=== PATIENT | female | born 1995 | race African-American/Black ===

== ENCOUNTER 2016-12-30 13:26 | Emergency (ER) | payer OTHER ==
[2016-12-30 13:32] VITALS: BP 117/67; PULSE 60; TEMP 98.6; BMI 19.8
[2016-12-30] MEDS ORDERED: KETOROLAC TROMETHAMINE 60 MG/2 ML VIAL IM ONE (14:03)
[2016-12-30] MEDS ORDERED: KETOROLAC TROMETHAMINE 60 MG/2 ML VIAL ONE (14:06)
[2016-12-30] MEDS ORDERED: CYCLOBENZAPRINE HCL 10 MG TABLET (FP) PO ONE (14:18)
[2016-12-30] MEDS ORDERED: IBUPROFEN 600 MG TABLET (FP) PO ONE ×2 (14:18→14:21)
[2016-12-30] MEDS ORDERED: CYCLOBENZAPRINE HCL 10 MG TABLET (FP) ONE (14:21)
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
== END 2016-12-30 14:38 | disposition home or self-care (01) ==
LOC: JERFT 13:26
DX: S13.4XXA Sprain of ligaments of cervical spine, initial encounter (principal); V43.52XA Car driver injured in collision with other type car in traffic accident, initial encounter; Y92.410 Unspecified street and highway as the place of occurrence of the external cause; Y93.89 Activity, other specified
CPT/HCPCS: 99281-25

== ENCOUNTER 2017-05-16 19:31 | Emergency (ER) | payer OTHER ==
[2017-05-16 19:35] VITALS: BP 119/57; PULSE 86; TEMP 98.1; BMI 20.2
--- NOTE | 2017-05-16 19:57 | PDOC ---
History of Present Illness - General Chief Complaint: Urinary Problem Stated Complaint: PAIN Time Seen by Provider: 05/16/17 19:46 History Source: Patient - History of Present Illness Initial Comments: 05/16/17 20:15 Chief complaint: I have a UTI pt is a healthy 21 male who states she has 4 days of urinary frequency, and pressure. Patient's last period was just before . 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 No fever, vomiting, nausea or flank pain. GENERAL/CONSTITUTIONAL: No fever, weakness. dizziness HEAD, EYES, EARS, NOSE AND THROAT: No change in vision. No ear pain or discharge. No sore throat. CARDIOVASCULAR: No chest pain RESPIRATORY: No shortness of breath or cough GASTROINTESTINAL: No pain, nausea, vomiting, diarrhea or constipation GENITOURINARY: +dysuria MUSCULOSKELETAL: No neck or back pain SKIN: No rash NEUROLOGIC: No headache, vertigo, loss of consciousness, or loss of sensation. GENERAL: The patient is awake, alert, and fully oriented, in no acute distress. HEAD: Normal with no signs of trauma. EYES: Pupils equal, round and reactive to light, sclera anicteric, conjunctiva clear. ENT: pharynx: no erythema, no exudate, uvula midline NECK: supple CHEST: clear, nontender, rr ABD: soft, nontender EXTREMITIES: Normal range of motion, no edema. NEUROLOGICAL: Normal speech, normal gait. SKIN: Warm, Dry Past History - Past Medical History Allergies/Adverse Reactions: Allergies Allergy/AdvReac Type Severity Reaction Status Date / Time No Known Allergies Allergy Verified 05/16/17 19:35 Home Medications: Ambulatory Orders Cephalexin [Keflex] 1,000 mg PO BID #28 capsule 05/16/17 Asthma: No Cancer: No Cardiac Disorders: No COPD: No Diabetes: No HTN: No Seizures: No Thyroid Disease: No - Suicide/Smoking/Psychosocial Hx Smoking Status: Yes Smoking History: Former smoker Have you smoked in the past 12 months: Yes Number of Cigarettes Smoked Daily: 10 If you are a former smoker, when did you quit?: 10/13/12 Information on smoking cessation initiated: No Hx Alcohol Use: No Drug/Substance Use Hx: No Hx Substance Use Treatment: No *Physical Exam - Vital Signs Last Vital Signs Temp Pulse Resp BP Pulse Ox 98.1 F 86 18 119/57 99 05/16/17 19:32 05/16/17 19:32 05/16/17 19:32 05/16/17 19:32 05/16/17 19:32 Medical Decision Making - Medical Decision Making 05/16/17 20:17 Patient with 4 days of urinary frequency and pressure, been using Azo but not getting better. Patient just got checked for STDs by her anhydrous ammonia production supervisor and had her IUD removed. Does not want a pelvic exam. We will send STDs in the urine just to be complete patient appears well *DC/Admit/Observation/Transfer Diagnosis at time of Disposition: Urinary tract infection Qualifiers: Urinary tract infection type: site unspecified Hematuria presence: with hematuria Qualified Code(s): N39.0 - Urinary tract infection, site not specified ; R31.9 - Hematuria, unspecified; R31.9 - Hematuria, unspecified - Discharge Dispostion Disposition: HOME Condition at time of disposition: Stable Admit: No - Prescriptions Prescriptions: Cephalexin [Keflex] 1,000 mg PO BID #28 capsule - Referrals - Patient Instructions Printed Discharge Instructions: DI for Urinary Tract Infection (UTI) Additional Instructions: Drink 2-3 L of water daily Take the Keflex 1000 mg twice a day for 7 days take Acidophilus to help prevent yeast infection or stomach upset Return ER if fever, vomiting, feeling sicker Follow-up with your doctor in 2-3 days - Post Discharge Activity
[2017-05-16 20:10] LABS: URINE APPEARANCE CLEAR; URINE BILIRUBIN NEGATIVE (NEGATIVE); URINE BLOOD 2+ (NEGATIVE); URINE COLOR DK. ORANGE; URINE GLUCOSE (UA) 1+ (NEGATIVE); URINE KETONE TRACE (NEGATIVE); URINE UROBILINOGEN 4.0 E.U/dl mg/dL (0.2-1.0)
[2017-05-16 20:12] LABS: URINE NITRITE POSITIVE (NEGATIVE); URINE PROTEIN 2+ (NEGATIVE)
[2017-05-16 20:15] LABS: URINE BACTERIA RARE /hpf (NONE SEEN); URINE MUCUS RARE; URINE RBC 64 /hpf (0-3); URINE WBC 333 /hpf (3-5)
[2017-05-16 22:38] LABS: URINE LEUK ESTERASE 3+ (NEGATIVE)
--- NOTE | 2017-05-19 18:46 | PDOC ---
Patient Follow-up (Call Back) - Post ED Follow - Up Condition at time of discharge: Stable Disposition at time of original discharge: HOME Reason for Call Back: Abnwl. Microbiology (Chlamydia test from 12 to came back positive patient was not treated for chlamydia was treated for UTI with Keflex, patient was called to inform her that she was positive and that a prescription for azithromycin 1000 [facility] Patient was informed that she should notify her sexual partners that she was positive for chlamydia and to wear condoms at all times when having sexual relations.)
== END 2017-05-16 20:41 | disposition home or self-care (01) ==
LOC: JERFT 19:31
DX: N39.0 Urinary tract infection, site not specified (principal); R31.9 Hematuria, unspecified; Z87.891 Personal history of nicotine dependence
CPT/HCPCS: 36415; 81003; 81015; 84703; 87491; 87591; 99281-25

== ENCOUNTER 2018-06-12 14:03 | Emergency (ER) | payer OTHER ==
[2018-06-12 14:11] VITALS: BMI 18.8
--- NOTE | 2018-06-12 16:26 | PDOC ---
History of Present Illness - General Chief Complaint: Vaginal Bleeding Stated Complaint: VAGINAL BLEEDING Time Seen by Provider: 06/12/18 16:20 History Source: Patient Exam Limitations: No Limitations - History of Present Illness Initial Comments: 22 yo F presents to the ER after she experienced painless vaginal bleeding yesterday. She states she took a home test which was positive but has not yet had a formal US documenting an IUP. She denies any current abdominal pain or cramping. She states she occasionally has lower back cramps but nothing more today than usual. She is here in the ER to have an US to document she has an intrauterine . She is also worried about her bleeding. She has not been taking pre- vitamins. She also endorses frequency but denies dysuria or hematuria. She denies any recent fevers, chills, infections, chest pain, SOB, difficulty breathing, headache, lightheadedness, blurry vision, neck pain, leg pain, arm pain, joint pain, or recent travel. 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 Denies drinking alcohol, smoking marijuana or other substance usage. Past History - Past Medical History Allergies/Adverse Reactions: Allergies Allergy/AdvReac Type Severity Reaction Status Date / Time No Known Allergies Allergy Verified 06/12/18 14:11 Home Medications: Ambulatory Orders Cephalexin [Keflex] 1,000 mg PO BID #28 capsule 05/16/17 Azithromycin 1,000 mg PO ONCE #2 tablet 05/19/17 Asthma: No Cancer: No Cardiac Disorders: No COPD: No Diabetes: No HTN: No Seizures: No Thyroid Disease: No - Suicide/Smoking/Psychosocial Hx Smoking Status: Yes Smoking History: Current every day smoker Have you smoked in the past 12 months: Yes Number of Cigarettes Smoked Daily: 2 If you are a former smoker, when did you quit?: 10/13/12 Information on smoking cessation initiated: No Hx Alcohol Use: No Drug/Substance Use Hx: No Hx Substance Use Treatment: No Review of Systems - Review of Systems Constitutional: No: Chills, Diaphoresis, Fever, Malaise HEENTM: No: Blurred Vision, Double Vision Respiratory: No: Cough, Orthopnea, Shortness of Breath, SOB at Rest, Wheezing Cardiac (ROS): No: Chest Pain, Edema, Irregular Heart Rate, Lightheadedness, Palpitations, Syncope ABD/GI: Yes: Nausea, Poor Appetite, Poor Fluid Intake. No: Abdominal Distended , Blood Streaked Bowels, Constipated, Diarrhea, Vomiting : Yes: Frequency. No: Burning, Dysuria, Discharge, Flank Pain, Hematuria Musculoskeletal: Yes: Back Pain. No: Joint Pain, Muscle Pain, Neck Pain Integumentary: No: Bruising, Change in Color, Change in Hair/Nails, Dryness, Erythema Neurological: No: Headache, Numbness, Paresthesia, Seizure, Tingling Psychiatric: No: Anxiety, Depression Endocrine: No: Excessive Sweating, Intolerance to Cold, Intolerance to Heat Hematologic/Lymphatic: No: Anemia, Blood Clots, Easy Bleeding *Physical Exam - Vital Signs Last Vital Signs Temp Pulse Resp BP Pulse Ox 98.8 F 70 18 110/55 L 99 06/12/18 14:09 06/12/18 14:09 06/12/18 14:09 06/12/18 14:09 06/12/18 14:09 - Physical Exam General Appearance: Yes: Nourished, Appropriately Dressed. No: Apparent Distress HEENT: positive: EOMI, ELIDIA, Normal ENT Inspection, Normal Voice Neck: positive: Supple. negative: Rigid Respiratory/Chest: positive: Lungs Clear, Normal Breath Sounds. negative: Respiratory Distress, Crackles, Wheezing Cardiovascular: positive: Regular Rhythm, Regular Rate, S1, S2. negative: Edema Vascular Pulses: Dorsalis-Pedis (R): 2+, Doralis-Pedis (L): 2+ Gastrointestinal/Abdominal: positive: Normal Bowel Sounds, Soft. negative: Guarding, Rebound, Tenderness Rectal Exam: positive: deferred Lymphatic: negative: Adenopathy Musculoskeletal: positive: Normal Inspection. negative: CVA Tenderness, Vertebral Tenderness Integumentary: positive: Normal Color, Dry, Warm Neurologic: positive: [employer] professor II-XII NML intact, Fully Oriented, Alert, Normal Mood/ Affect, Normal Response, Motor Strength 5/5 Moderate Sedation - Procedure Monitoring Vital Signs: Procedure Monitoring Vital Signs Temperature 98.8 F 06/12/18 14:09 Pulse Rate 70 06/12/18 14:09 Respiratory Rate 18 06/12/18 14:09 Blood Pressure 110/55 L 06/12/18 14:09 O2 Sat by Pulse Oximetry (%) 99 06/12/18 14:09 ED Treatment Course - LABORATORY CBC & Chemistry Diagram: 06/12/18 17:30 06/12/18 17:30 Medical Decision Making - Medical Decision Making 22 yo F presents to the ER after she experienced painless vaginal bleeding yesterday. - positive home test, no confirmed US yet DDx IBNLT: , ectopic, - inevitable, Renal colic, UTI, pylo, hemorrhagic cyst Plan: Labs, Urine, Pelvic exam, IV hydration, US, re-assess. Labs show a quantitative HCG of 9746 Hb stable - no concern for significant volume loss. US showed no acute problems. Will DC patient with OB follow up. *DC/Admit/Observation/Transfer Diagnosis at time of Disposition: Qualifiers: Weeks of gestation: unspecified Qualified Code(s): Z34.90 - Encounter for supervision of normal , unspecified, unspecified trimester - Discharge Dispostion Disposition: HOME Condition at time of disposition: Stable Decision to Admit order: No - Referrals Referrals: Star Lazo MD [Staff Physician] - - Patient Instructions Printed Discharge Instructions: Eating During : A Labor for Dad, Eating for Appropriate Weight Gain During , A Survival Guide for Men, Weight Gain During , Managing Symptoms of Additional Instructions: You came into the ER with vaginal bleeding. We looked at your blood and urine and found no problems. It is very important for you to follow up with an OB doctors in the next 3 to 5 days - We have attached the number of an OB doctor for you to call and schedule an appointment - Dr. Lazo It is very early in your so the Ultrasound is not going to say as much as an ultrasound will tell you in 1 to 2 weeks. Please come back to the ER if you start bleeding profusely from your vagina, have severe abdominal pain, or any other new or worsening concerns. We will call you if you have an infection present in your urine as you are requesting to leave prior to the results. Thank you for coming to the [facility] ER. We hope you feel better soon! Print Language: KYRGYZ - Post Discharge Activity Forms/Work/School Notes: Back to Work
[2018-06-12] MEDS ORDERED: SODIUM CHLORIDE 0.9% 500 ML INFUS.BAG IV ONE (16:27)
[2018-06-12 17:57] LABS: BASO % 0.9 % (0-2.0); EOS % 1.8 % (0-4.5); HEMATOCRIT 40.9 % (32.4-45.2); HEMOGLOBIN 13.6 GM/dL (10.7-15.3); LYMPH % 43.4 % (8-40); MCH 30.1 pg (25.7-33.7); MCHC 33.3 g/dl (32.0-36.0); MEAN CELL VOLUME 90.5 fl (80-96); MEAN PLT VOLUME 7.5 fl (7.5-11.1); MONO % 4.9 % (3.8-10.2); PLATELET COUNT 313 K/MM3 (134-434); RBC 4.52 M/mm3 (3.60-5.2)
[2018-06-12 18:55] LABS: ALBUMIN 4.2 g/dl (3.4-5.0); ALK PHOS 58 U/L (45-117); ANION GAP 5 MMOL/L (8-16); BILIRUBIN,TOTAL 0.7 mg/dL (0.2-1); BLOOD UREA NITROGEN 9 mg/dL (7-18); CALCIUM 8.8 mg/dL (8.5-10.1); CHLORIDE 106 mmol/L (98-107); CO2 26 mmol/L (21-32); CREATININE 0.7 mg/dL (0.55-1.3); GLUCOSE,RANDOM 100 mg/dL (74-106); SGOT/AST 13 U/L (15-37); SGPT/ALT 15 U/L (13-61); SODIUM 137 mmol/L (136-145); TOT PROT 7.6 g/dl (6.4-8.2)
--- NOTE | 2018-06-12 19:45 | PDOC ---
Attending Attestation - Resident Resident Name: Harrison Glez - ED Attending Attestation I have performed the following: I have examined & evaluated the patient, The case was reviewed & discussed with the resident, I agree w/resident's findings & plan - HPI HPI: 06/12/18 19:46 Wolf 22 YOF presents to the ER after she experienced painless vaginal bleeding yesterday. She states she took a home test. No formal OB visit yet. No ap/n/v/d, urinary sx, f/c. No syncope or back pain - Physicial Exam PE: 06/12/18 19:46 NAD, well appearing, MMM, nl conjunctiva, anicteric; neck supple. lungs clear, + soft murmur, abdomen soft nontender. No cvat. PARADA x4, no focal neuro deficits. No peripheral edema. normal color for ethnicity, WWP. Pelvic exam with resident, no bleeding, cervix closed, no adnexal or cervical tenderness. - Medical Decision Making 06/12/18 19:46 hpi as documented, VS wnl. DDx female: ectopic , miscarriage, demise, subchorionic hematoma, UTI in in . Fibroid uterus, vaginitis, infection , electrolyte/metabolic derangements. labs and lytes normal, UA_neg for infection, no bacteria. likely contaminated with mucus and epis beta hcg 9700 Rh positive, no rhogam indicated. TVUS: early IUP too small to eval age, no pole yet. Serial US and beta. No torsion, no mass/FF. no e/o ectopic, but early with gestational sac visualized. pt clinically well appearing. requesting to eat, comfortable, ambulatory in department and using her cell phone dispo: [facility], OB followup as outpatient, for recheck as still early; bleeding precautions, worsening pain or syncope/sx. pt verbalized understanding of impression and plan and instructions 06/12/18 22:12
--- NOTE | 2018-06-12 20:22 | PDOC ---
*Physical Exam - Vital Signs Last Vital Signs Temp Pulse Resp BP Pulse Ox 98.8 F 70 18 110/55 L 99 06/12/18 14:09 06/12/18 14:09 06/12/18 14:09 06/12/18 14:09 06/12/18 14:09 - Physical Exam Comments: 06/12/18 20:21 Received sign out from Dr. Glez. Will have her follow up with [facility] next week to assess. ED Treatment Course - LABORATORY CBC & Chemistry Diagram: 06/12/18 17:30 06/12/18 17:30 - ADDITIONAL ORDERS Additional order review: Laboratory Results 06/12/18 06/12/18 17:30 17:30 Sodium 137 Potassium 4.0 Chloride 106 Carbon Dioxide 26 Anion Gap 5 L BUN 9 Creatinine 0.7 Creat Clearance w eGFR > 60 Random Glucose 100 Calcium 8.8 Total Bilirubin 0.7 AST 13 L ALT 15 Alkaline Phosphatase 58 Total Protein 7.6 Albumin 4.2 Beta HCG, Quant 9746.9 Blood Type O POSITIVE Antibody Screen Negative 06/12/18 17:30 RBC 4.52 MCV 90.5 MCHC 33.3 RDW 14.0 MPV 7.5 Neutrophils % 49.0 Lymphocytes % 43.4 H D Monocytes % 4.9 Eosinophils % 1.8 Basophils % 0.9 D *DC/Admit/Observation/Transfer Diagnosis at time of Disposition: Qualifiers: Weeks of gestation: unspecified Qualified Code(s): Z34.90 - Encounter for supervision of normal , unspecified, unspecified trimester - Discharge Dispostion Disposition: HOME Condition at time of disposition: Stable - Referrals Referrals: Star Lazo MD [Staff Physician] - - Patient Instructions Printed Discharge Instructions: Eating During : A Labor for Dad, Eating for Appropriate Weight Gain During , A Survival Guide for Men, Weight Gain During , Managing Symptoms of Additional Instructions: You came into the ER with vaginal bleeding. We looked at your blood and urine and found no problems. It is very important for you to follow up with an OB doctors in the next 3 to 5 days - We have attached the number of an OB doctor for you to call and schedule an appointment - Dr. Lazo It is very early in your so the Ultrasound is not going to say as much as an ultrasound will tell you in 1 to 2 weeks. Please come back to the ER if you start bleeding profusely from your vagina, have severe abdominal pain, or any other new or worsening concerns. We will call you if you have an infection present in your urine as you are requesting to leave prior to the results. Thank you for coming to the [facility] ER. We hope you feel better soon! Print Language: BELGIAN - Post Discharge Activity Forms/Work/School Notes: Back to Work
[2018-06-12 20:57] VITALS: BP 118/62; PULSE 68; TEMP 98.1
[2018-06-12 21:06] LABS: HCG,QUALITATIVE URINE Positive
[2018-06-12 21:07] LABS: URINE APPEARANCE SLCLOUDY; URINE BILIRUBIN NEGATIVE (<2.0 mg/dL); URINE COLOR YELLOW; URINE GLUCOSE (UA) NEGATIVE (NEGATIVE); URINE KETONE NEGATIVE (NEGATIVE); URINE LEUK ESTERASE NEGATIVE (NEGATIVE); URINE NITRITE NEGATIVE (NEGATIVE); URINE PROTEIN NEGATIVE (NEGATIVE); URINE UROBILINOGEN 4.0 E.U/dl mg/dL (0.2-1.0)
[2018-06-12 21:28] LABS: EPI CELLS FEW /HPF (FEW); URINE MUCUS MANY
== END 2018-06-12 21:02 | disposition home or self-care (01) ==
LOC: JER 14:03
DX: O26.891 Other specified pregnancy related conditions, first trimester (principal); O20.8 Other hemorrhage in early pregnancy; Z3A.01 Less than 8 weeks gestation of pregnancy
CPT/HCPCS: 36415; 76801-TC; 80053; 81003; 81015; 84702; 84703; 85025; 86850; 86900; 86901; 87086; 99283-25

== ENCOUNTER 2019-01-13 03:05 | Emergency (ER) | payer OTHER ==
[2019-01-13 04:23] VITALS: BP 100/47; PULSE 66; TEMP 98.6; BMI 21.4
--- NOTE | 2019-01-13 04:50 | PDOC ---
History of Present Illness - General Chief Complaint: Vaginal Bleeding Stated Complaint: VAGINAL BLEEDING, 10 WKS Time Seen by Provider: 01/13/19 04:49 - History of Present Illness Initial Comments: 01/13/19 05:09 In the process of obtaining history and physical patient decided she did not want to stay in the department. Senior and attending aware. Past History - Past Medical History Allergies/Adverse Reactions: Allergies Allergy/AdvReac Type Severity Reaction Status Date / Time No Known Allergies Allergy Verified 06/12/18 14:11 Home Medications: Ambulatory Orders Cephalexin [Keflex] 1,000 mg PO BID #28 capsule 05/16/17 Azithromycin [Zithromax] 1,000 mg PO ONCE #2 tablet 05/19/17 Asthma: No Cancer: No Cardiac Disorders: No COPD: No Diabetes: No HTN: No Seizures: No Thyroid Disease: No - Suicide/Smoking/Psychosocial Hx Smoking Status: Yes Smoking History: Former smoker Have you smoked in the past 12 months: No Number of Cigarettes Smoked Daily: 2 If you are a former smoker, when did you quit?: 10/13/12 Information on smoking cessation initiated: Yes Hx Alcohol Use: No Drug/Substance Use Hx: No Hx Substance Use Treatment: No *Physical Exam - Vital Signs Last Vital Signs Temp Pulse Resp BP Pulse Ox 98.6 F 66 16 100/47 L 98 01/13/19 04:20 01/13/19 04:20 01/13/19 04:20 01/13/19 04:20 01/13/19 04:20 *DC/Admit/Observation/Transfer Diagnosis at time of Disposition: Vagina bleeding - Discharge Dispostion Disposition: LEFT BEFORE [facility]IR[facility] Condition at time of disposition: Unchanged/Unknown - Referrals - Patient Instructions - Post Discharge Activity
== END 2019-01-13 05:20 | disposition left against medical advice (07) ==
LOC: JER 03:05
DX: Z53.21 Procedure and treatment not carried out due to patient leaving prior to being seen by health care provider (principal)
CPT/HCPCS: 99281-25

== ENCOUNTER 2019-08-09 14:15 | Inpatient (IN) | payer OTHER ==
[~2019-08-09 14:15] MED LIST: DEXTROSE 5%-LACTATED RINGERS 1,000 ML IV SCH
[2019-08-09] MEDS ORDERED: OXYTOCIN 20 UNITS in 0.9% NS 20 UNIT/1,000 ML INFUS.BAG IV ONE ×2 (14:45→16:15)
[2019-08-09] MEDS ORDERED: OXYTOCIN 20 UNITS in 0.9% NS 20 UNIT/1,000 ML INFUS.BAG IV SCH (14:50)
[2019-08-09] MEDS ORDERED: METHYLERGONOVINE MALEATE 0.2 MG/1 ML AMP IM PRN (15:21)
[2019-08-09] MEDS ORDERED: oxyCODONE HCL 5 MG TABLET PO PRN (15:21)
[2019-08-09] MEDS ORDERED: BENZOCAINE 28 GM HEMORRHOIDAL OINTMENT TP PRN (15:21)
[2019-08-09] MEDS ORDERED: BENZOCAINE 20% 57 GM BOTTLE TP PRN (15:21)
[2019-08-09] MEDS ORDERED: WITCH HAZEL 50% (TUCKS) 40 PAD/JAR PAD TP PRN (15:21)
[2019-08-09] MEDS ORDERED: BISACODYL 10 MG SUPP.RECT RC PRN (15:21)
[2019-08-09] MEDS ORDERED: IBUPROFEN 600 MG TABLET (FP) PO ONE (15:37)
[2019-08-09] MEDS ORDERED: ACETAMINOPHEN 325 MG TABLET (FP) ONE (15:37)
[2019-08-09] MEDS: ACETAMINOPHEN 325 MG TABLET (FP) PO PRN ×2 (15:40→20:30)
[2019-08-09] MEDS: IBUPROFEN 600 MG TABLET (FP) PO PRN ×2 (15:40→20:30)
--- NOTE | 2019-08-09 16:13 | HP ---
Past Medical History - Primary Care Physician PCP:: Etta Kebede - Admission Chief Complaint: 24 yrs ,40 weeks gestation admitted in active labor, onset LP since 10.00AM History of Present Illness: PNC at [address] [place] [address] 01/06/19 panel : O Pos, Hbsag neg, Hep c nr, Rpr nr, Hiv neg, Rubella immune, Varicella immune , sickle neg, lead neg , cf screen neg , gc/ct neg 04/28/19 1hr gct 107, Quantiferon neg 07/02/19 : gbs/gc/ct neg , hiv neg sono done by [facility] for growth review 01/27/19 sono 12.6 weeks sliup , edc assigned 08/10/19 pncourse uneventful History Source: Patient, Medical Record Limitations to Obtaining History: No Limitations - Past Medical History 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 Weeks Gestation by Dates: 40.1 ...EDC by Dates: 08/08/19 ...EDC by Sono: 08/10/19 Heme/Onc: Yes: Anemia Infectious Disease: No: AIDS, HIV, STD's Musculoskeletal: No: Bursitis, Chronic low back pain, Hemiparesis, Hemiplegia, Osteoarthritis, Paraplegia, Other Endocrine: No: Diabetes Mellitus, Hyperthyroidism, Hypothyroidism - Past Surgical History Past Surgical History: Yes: None Hx Myomectomy: No Hx Transabdominal Cerclage: No - Smoking History Smoking history: Never smoked Have you smoked in the past 12 months: No Aproximately how many cigarettes per day: 2 If you are a former smoker, when did you quit?: 10/13/12 - Alcohol/Substance Use Hx Alcohol Use: No History of Substance Use: reports: None Home Medications - Allergies Allergies/Adverse Reactions: Allergies Allergy/AdvReac Type Severity Reaction Status Date / Time No Known Allergies Allergy Verified 08/09/19 18:35 - Home Medications Home Medications: Ambulatory Orders 19 Tablet 1 tab PO DAILY 06/23/19 Ferrous Sulfate [Iron] 1 tab PO DAILY 08/09/19 Physical Exam - Maternity Vital Signs: Selected Entries 08/09/19 08/09/19 14:20 15:00 Pulse Rate 85 Respiratory 17 Rate Blood Pressure 124/67 Weight 185 lb Constitutional: Yes: Well Nourished, Severe Distress Eyes: Yes: WNL HENT: Yes: WNL, Normocephalic Neck: Yes: WNL Lungs: Clear to auscultation Breast(s): Yes: WNL - Abdominal Exam/OB Fundal Height: 40 Number of Fetuses: Single Presentation: Vertex Contractions: Yes Regularity: Regular (1-2 min) Intensity: Strong Monitor Mode: External Heart Rate (range): 130 Heart Rate Location: Midline Category: I Accelerations: Uniform Decelerations: Early - Vaginal Exam/OB Vaginal Bleediing: Bloody Show Speculum Exam: No Dilatation (cm): 10 Effacement (%): 100 Amniotic Membrane Status: Intact Amniotic Fluid: Yes: Clear (AROM at 2.40 PM) Presentation: Vertex/Position Station: +2 - Physical Exam Musculoskeletal: Yes: WNL Extremities: Yes: WNL. No: Calf Tenderness Edema: Yes Edema: LLE: 1+, RLE: 1+ Integumentary: Yes: Tattoos Deep Tendon Reflex Grade: Normal +2 ...Motor Strength: WNL Psychiatric: Yes: WNL - Labs Lab Results: Laboratory Tests 08/09/19 08/09/19 08/09/19 16:30 16:30 16:30 WBC 10.4 H Hgb 13.4 Hct 40.3 Plt Count 230 D PT with INR 11.80 INR 1.00 PTT (Actin FS) 27.2 Sodium 141 Potassium 3.4 L Chloride 110 H Carbon Dioxide 23 BUN 6.4 L Creatinine 0.5 L Laboratory Tests 08/09/19 08/09/19 08/09/19 16:30 16:30 16:30 WBC 10.4 H Hgb 13.4 Hct 40.3 Plt Count 230 D PT with INR 11.80 INR 1.00 PTT (Actin FS) 27.2 Sodium 141 Potassium 3.4 L Chloride 110 H Carbon Dioxide 23 BUN 6.4 L Creatinine 0.5 L Random Glucose 73 L Calcium 8.2 L Opiates Screen Methadone Screen Barbiturate Screen Phencyclidine Screen Ur Amphetamines Screen MDMA (Ecstasy) Screen Benzodiazepines Screen Cocaine Screen U Marijuana (THC) Screen Blood Type 08/09/19 08/09/19 16:30 19:25 WBC Hgb Hct Plt Count PT with INR INR PTT (Actin FS) Sodium Potassium Chloride Carbon Dioxide BUN Creatinine Random Glucose Calcium Opiates Screen Negative Methadone Screen Negative Barbiturate Screen Negative Phencyclidine Screen Negative Ur Amphetamines Screen Negative MDMA (Ecstasy) Screen Negative Benzodiazepines Screen Negative Cocaine Screen Negative U Marijuana (THC) Screen Negative Blood Type O POSITIVE Problem List - Problems (1) 40 weeks gestation of Code(s): Z3A.40 - 40 WEEKS GESTATION OF (2) Labor established Code(s): RPP4716 - Assessment/Plan 24 yrs , 40.2 weeks by dtes 39.6 weeks by sono admitted in active labor gbs neg Plan vaginal delivery conducted at 2.43 PM , baby girl, , 9/9 placenta delievered without difficulty at 2.48PM perineum & vagina intact 20 iv pitocin & pp care
--- NOTE | 2019-08-09 16:30 | PN ---
Delivery - Delivery Vaginal Delivery: No Problems, Spontaneous ( , vx brian position, , shoulder delivered without difficulty.cord blood collected, Trivascular cord placenta & membranes delievered without difficulty . 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
[2019-08-09 17:25] LABS: BASO % 0.1 % (0-2.0); EOS % 0.1 % (0-4.5); HEMATOCRIT 40.3 % (32.4-45.2); HEMOGLOBIN 13.4 GM/dL (10.7-15.3); LYMPH % 8.4 % (8-40); MCH 31.5 pg (25.7-33.7); MCHC 33.4 g/dl (32.0-36.0); MEAN CELL VOLUME 94.6 fl (80-96); MEAN PLT VOLUME 8.3 fl (7.5-11.1); MONO % 3.5 % (3.8-10.2); NEUT % 87.9 % (42.8-82.8); PLATELET COUNT 230 K/MM3 (134-434); RBC 4.26 M/mm3 (3.60-5.2); RDW 14.3 % (11.6-15.6); WHITE BLOOD COUNT 10.4 K/mm3 (4.0-10.0)
[2019-08-09 17:46] LABS: PROTHROMBIN TIME (PATIENT) 11.8 SEC (9.7-13.0)
[2019-08-09 17:47] LABS: BLOOD UREA NITROGEN 6.4 mg/dL (7-18); CALCIUM 8.2 mg/dL (8.5-10.1); CREATININE 0.5 mg/dL (0.55-1.3); POTASSIUM 3.4 mmol/L (3.5-5.1)
[2019-08-09 17:48] LABS: ACTIVATED PTT 27.2 SECONDS (25.2-36.5)
[2019-08-09 18:00] VITALS: BMI 27.3
[2019-08-09] MEDS: FERROUS SO4 325 MG TABLET (FP) PO SCH (18:35)
[2019-08-09 19:58] LABS: COCAINE, UR NEGATIVE ng/ml (CUTOFF=300); METHADONE, UR NEGATIVE ng/ml (CUTOFF=300); OPIATES, URI NEGATIVE ng/ml (CUTOFF=300); PHENCYCLIDINE,URINE NEGATIVE ng/ml (CUTOFF=25); URINE AMPHETAMINES NEGATIVE ng/ml (CUTOFF=500); URINE BARBITURATES NEGATIVE ng/ml (CUTOFF=200); URINE BENZODIAZEPINES NEGATIVE ng/ml (CUTOFF=200)
[2019-08-10] MEDS: IBUPROFEN 600 MG TABLET (FP) PO PRN ×4 (00:10→22:05)
[2019-08-10] MEDS: ACETAMINOPHEN 325 MG TABLET (FP) PO PRN ×4 (00:10→22:06)
[2019-08-10] MEDS: FERROUS SO4 325 MG TABLET (FP) PO SCH ×2 (07:34→17:48)
[2019-08-10 08:33] LABS: BASO % 0.2 % (0-2.0); EOS % 1.4 % (0-4.5); HEMATOCRIT 35.3 % (32.4-45.2); LYMPH % 20.5 % (8-40); MCH 31.9 pg (25.7-33.7); MEAN CELL VOLUME 93.8 fl (80-96); MEAN PLT VOLUME 8.1 fl (7.5-11.1); MONO % 7.1 % (3.8-10.2); NEUT % 70.8 % (42.8-82.8); PLATELET COUNT 206 K/MM3 (134-434); RBC 3.76 M/mm3 (3.60-5.2); RDW 14.4 % (11.6-15.6); WHITE BLOOD COUNT 7.2 K/mm3 (4.0-10.0)
--- NOTE | 2019-08-10 09:42 | PN ---
Post Progress Note - Subjective Subjective: c/o mild cramps Post Day: 1 Type of Delivery: Vital Signs: Vital Signs Temperature 97.9 F 08/10/19 08:35 Pulse Rate 71 08/10/19 08:35 Respiratory Rate 20 08/10/19 08:35 Blood Pressure 101/55 L 08/10/19 08:35 O2 Sat by Pulse Oximetry (%) 99 08/09/19 16:45 Breast Exam: Yes: Soft, Other (BF ). No: Engorged Uterus: Yes: Fundus Firm, Fundus below umbilicus, Non-tender Lochia: Yes: Rubra Lochia, amount: Moderate Extremities: Yes: Calves non-tender Perineum: Yes: Intact Activity: Ambulating - Labs Labs: CBC WBC 7.2 K/mm3 (4.0-10.0) 08/10/19 07:50 RBC 3.76 M/mm3 (3.60-5.2) 08/10/19 07:50 Hgb 12.0 GM/dL (10.7-15.3) 08/10/19 07:50 Hct 35.3 % (32.4-45.2) 08/10/19 07:50 MCV 93.8 fl (80-96) 08/10/19 07:50 MCH 31.9 pg (25.7-33.7) 08/10/19 07:50 MCHC 34.0 g/dl (32.0-36.0) 08/10/19 07:50 RDW 14.4 % (11.6-15.6) 08/10/19 07:50 Plt Count 206 K/MM3 (134-434) 08/10/19 07:50 MPV 8.1 fl (7.5-11.1) 08/10/19 07:50 Absolute Neuts (auto) 5.1 K/mm3 (1.5-8.0) 08/10/19 07:50 Neutrophils % 70.8 % (42.8-82.8) 08/10/19 07:50 Lymphocytes % 20.5 % (8-40) D 08/10/19 07:50 Monocytes % 7.1 % (3.8-10.2) D 08/10/19 07:50 Eosinophils % 1.4 % (0-4.5) D 08/10/19 07:50 Basophils % 0.2 % (0-2.0) 08/10/19 07:50 Nucleated RBC % 0 % (0-0) 08/10/19 07:50 Problem List - Problems (1) 40 weeks gestation of Code(s): Z3A.40 - 40 WEEKS GESTATION OF (2) Labor established Code(s): ETQ7917 - (3) (normal spontaneous vaginal delivery) Code(s): O80 - ENCOUNTER FOR FULL-TERM UNCOMPLICATED DELIVERY (4) care and examination of lactating mother Code(s): Z39.1 - ENCOUNTER FOR CARE AND EXAMINATION OF LACTATING MOTHER Assessment/Plan stable . plan discharge tomorrow.
[2019-08-10] MEDS: PRENATAL VITAMINS W/ FOLIC ACID TABLET (FP) PO SCH (09:49)
[2019-08-10] MEDS ORDERED: SENNOSIDES/DOCUSATE COMBO (SENNA PLUS) TABLET (UD) PO PRN (22:00)
[2019-08-11] MEDS: IBUPROFEN 600 MG TABLET (FP) PO PRN ×2 (03:13→09:12)
[2019-08-11] MEDS: ACETAMINOPHEN 325 MG TABLET (FP) PO PRN (03:14)
--- NOTE | 2019-08-11 07:07 | DS ---
Physical Examination Vital Signs: Vital Signs Temperature 98.1 F 08/10/19 22:00 Pulse Rate 77 08/10/19 22:00 Respiratory Rate 20 08/10/19 22:00 Blood Pressure 115/52 L 08/10/19 22:00 O2 Sat by Pulse Oximetry (%) 99 08/09/19 16:45 Constitutional: Yes: Well Nourished, No Distress, Calm Eyes: Yes: WNL, Conjunctiva Clear, EOM Intact HENT: Yes: WNL, Atraumatic, Normocephalic Neck: Yes: WNL, Supple, Trachea Midline Cardiovascular: Yes: WNL, Regular Rate and Rhythm Respiratory: Yes: WNL, Regular, CTA Bilaterally Gastrointestinal: Yes: WNL, Normal Bowel Sounds Musculoskeletal: Yes: WNL Extremities: Yes: WNL Edema: No Integumentary: Yes: WNL Neurological: Yes: WNL, Alert, Oriented ...Motor Strength: WNL Psychiatric: Yes: WNL Labs: CBC, BMP 08/10/19 07:50 08/09/19 16:30 Discharge Summary Problems reviewed: Yes Current Active Problems 40 weeks gestation of (Acute) Labor established (Acute) (normal spontaneous vaginal delivery) (Acute) care and examination of lactating mother (Acute) Procedures: Principal: Hospital Course: Patient presented in labor She had an uncomplicated She met all milestones She was discharged home in stable condition Pro Mcneal MD Condition: Stable - Instructions Diet, Activity, Other Instructions: Post Instructions DIET: Continue good diet high in protein, calcium, and iron rich foods. Drink at least eight (8) glasses of water daily in addition to other fluids. ct Regular diet MEDICATIONS: Continue vitamins and iron as previously directed. Motrin and Tylenol may be taken for minor discomfort. ACTIVITY: Mild to moderate exercise may be started in two (2) weeks. Take frequent rest periods. Resume normal activity after six (6) week check up. WOUND CARE OF OPERATIVE SITE: Continue use of perineal bottle until vaginal discharge stops. Keep area clean. Shower daily. Keep abdominal wound dry. Report any drainage or redness to physician. Tub baths, tampons and douches are not permitted for [address] Breast feeding & or Bottle feeding BREAST CARE: (For those that are not ): If engorgement occurs: Wear tight fitting bra. Take Tylenol or Motrin for pain. Apply cold packs (ice in bags to each breast ) FAMILY PLANNING: There are many control alternatives to pursue and they should be discussed at your first office visit. You may resume sexual activity after your six (6) week check up. (Remember, is not a contraceptive) NEXT PHYSICIAN APPOINTMENT: Be certain to call for a thre (3) week appointment, unless otherwise directed. Call Clinic or got to Emergency Dept if you have any of the following: Heavy vaginal bleeding Painful urination Leg pain Unusual odor noted to vaginal bleeding High fever Red streaking noted on breast Referrals: Etta Kebede MD [Staff Physician] - Disposition: HOME - Home Medications Comprehensive Discharge Medication List: Ambulatory Orders 19 Tablet 1 tab PO DAILY 06/23/19 Ferrous Sulfate [Iron] 1 tab PO DAILY 08/09/19 Acetaminophen [Tylenol .Regular Strength -] 650 mg PO Q3H PRN #0 tablet Ferrous Sulfate [Feosol] 325 mg PO DAILY #30 tab 08/10/19 Ibuprofen 600 mg PO Q6H PRN #30 tablet 08/10/19 Ibuprofen [Motrin -] 200 mg PO Q4H PRN tablet 08/10/19 Vitamins (Sjr) - 1 tab PO DAILY #30 tablet 08/10/19
[2019-08-11] MEDS: FERROUS SO4 325 MG TABLET (FP) PO SCH (09:12)
[2019-08-11] MEDS: PRENATAL VITAMINS W/ FOLIC ACID TABLET (FP) PO SCH (09:12)
[2019-08-11 09:44] VITALS: BP 116/57; PULSE 70; TEMP 98.2
== END 2019-08-11 14:30 | disposition home or self-care (01) | DRG 560 ==
LOC: JLDR 14:15 → J3W 20:05
PROVIDERS: ADMIT Obstetrics & Gynecology; ATTEND Obstetrics & Gynecology
PROC: 10E0XZZ Delivery of Products of Conception, External Approach (ICD-10-PCS; principal; 2019-08-09)
DX: O48.0 Post-term pregnancy (principal); Z3A.40 40 weeks gestation of pregnancy; Z37.0 Single live birth
CPT/HCPCS: 36415; 59409; 80048; 80307; 85025; 85610; 85730; 86593; 86850; 86900; 86901